=== PATIENT | male | born 1975 | race Two or more races ===

== ENCOUNTER 2016-05-27 16:59 | Emergency (ER) | payer SELFPAY ==
[~2016-05-27] VITALS: Ht 170.2 cm; Wt 95.3 kg
--- NOTE | 2016-05-27 17:46 | ED.ADGEN ---
Adult General Chief Complaint Chief Complaint: NAUSEA/VOMITING/DIARRHA HPI HPI Patient is a 40 year old male presents emergency Department with a 24-hour history of nausea, vomiting, and diarrhea after eating what he believes to be some bad food. Patient now feels as if he is dehydrated and is a little bit lightheaded when he stands. Denies any other recent illness or complaints. Have diffuse generalized abdominal cramping associated with the diarrhea. Review of Systems Review of Systems Constitutional: Denies fever or chills. [] Eyes: Denies change in visual acuity. [] HENT: Denies nasal congestion or sore throat. [] Respiratory: Denies cough or shortness of breath. [] Cardiovascular: Denies chest pain or edema. [] GI: Denies abdominal pain, nausea, vomiting, bloody stools or diarrhea. [] : Denies dysuria. [] Musculoskeletal: Denies back pain or joint pain. [] Integument: Denies rash. [] Neurologic: Denies headache, focal weakness or sensory changes. [] Endocrine: Denies polyuria or polydipsia. [] Lymphatic: Denies swollen glands. [] Psychiatric: Denies depression or anxiety. [] Current Medications Current Medications Current Medications Medications (Trade) Dose Ordered Sig/Darcy Start Time Stop Time Status Last Admin Dose Admin Ondansetron HCl 4 mg 4 mg 1X ONCE 05/27/16 18:30 05/27/16 18:31 05/27/16 18:21 4 MG Sodium Chloride (Iv Sodium Chloride 0.9% 1000ml Bag) 1,000 ml @ 1,000 mls/hr Q1H 05/27/16 18:30 05/27/16 19:29 05/27/16 18:22 1,000 MLS/HR Allergies Allergies Allergies Coded Allergies Type Severity Reaction Last Updated Verified No Known Drug Allergies 05/27/16 No Physical Exam Physical Exam Constitutional: Well developed, well nourished, no acute distress, non-toxic appearance. [] HENT: Normocephalic, atraumatic, bilateral external ears normal, oropharynx moist, no oral exudates, nose normal. [] Eyes: PERRLA, EOMI, conjunctiva normal, no discharge. [] Neck: Normal range of motion, no tenderness, supple, no stridor. [] Cardiovascular:Heart rate regular rhythm, no murmur [] Lungs & Thorax: Bilateral breath sounds clear to auscultation [] Abdomen: Bowel sounds normal, soft, no tenderness, no masses, no pulsatile masses. [] Skin: Warm, dry, no erythema, no rash. [] Back: No tenderness, no CVA tenderness. [] Extremities: No tenderness, no cyanosis, no clubbing, ROM intact, no edema. [] Neurologic: Alert and oriented X 3, normal motor function, normal sensory function, no focal deficits noted. [] Psychologic: Affect normal, judgement normal, mood normal. [] Current Patient Data Vital Signs Vital Signs Date Time Temp Pulse Resp B/P Pulse Ox O2 Delivery O2 Flow Rate FiO2 05/27/16 17:45 98.2 92 35 128/68 94 Room Air 98.2 EKG EKG [] Radiology/Procedures Radiology/Procedures [] Course & Med Decision Making Course & Med Decision Making Pertinent Labs and Imaging studies reviewed. (See chart for details) IV fluids and Zofran here in emergency department. He will be discharged home with prescription for Zofran as well as supportive care and follow-up instructions. [] Dragon Disclaimer Dragon Disclaimer This electronic medical record was generated, in whole or in part, using a voice recognition dictation system. ROMMEL PALAFOX MD May 27, 2016 17:46
[2016-05-27] MEDS ORDERED: ONDA4TAB10 SL (18:21)
[2016-05-27] MEDS ORDERED: ONDANSETRON PF 4 MG/2 ML VIAL. IV ONE (18:30)
[2016-05-27] MEDS ORDERED: IV NORMAL SALINE 1000ML BAG 1,000 ML IV SCH (18:30)
[2016-05-27 18:40] VITALS: BP 119/62
== END 2016-05-27 19:02 | disposition home or self-care (01) ==
LOC: ER 16:59
DX: R11.2 Nausea with vomiting, unspecified (principal); R19.7 Diarrhea, unspecified; R42 Dizziness and giddiness
CPT/HCPCS: 96361; 96374; 99284; J2405; J7030